=== PATIENT | male | born 1995 | race Hispanic/Latino ===

== ENCOUNTER 2017-06-06 21:12 | Emergency (ER) | payer BC ==
[2017-06-06 21:21] VITALS: BMI 32.1
[2017-06-06 22:39] LABS: BASO # 0.01 K/mm3 (0.0-2.0); BASO % 0.1 % (0.0-3.0); EOS # 0.1 (0.0-0.7); EOS % 0.9 % (1.5-5.0); GRAN % 78.4 % (50.0-68.0); HEMOGLOBIN 15.4 gm/dL (14.0-18.0); LYMPH # 0.9 (1.2-3.4); LYMPH % 10.8 % (22.0-35.0); MEAN CELL VOLUME 88.1 fL (80.0-105.0); MEAN CORPUSCULAR HEMOGLOBIN 31.5 pg (25.0-35.0); MEAN CORPUSCULAR HGB CONC 35.7 g/dl (31.0-37.0); MEAN PLATELET VOLUME 9.5 fl (7.0-11.0); MONO # 0.8 (0.1-0.6); MONO % 9.8 % (1.0-6.0); PLATELET COUNT 149 10^3/uL (120.0-450.0); RBC 4.89 10^6/uL (3.5-6.1); RED CELL DISTRIBUTION WIDTH 13.2 % (11.5-14.5); WHITE BLOOD COUNT 8.4 10^3/ul (4.5-11.0)
[2017-06-06 22:49] LABS: ACETAMINOPHEN < 10.0 ug/ml (10.0-20.0); SALICYLATE < 1 mg/dL (2.0-20.0)
[2017-06-06 22:50] LABS: ALB/GLOB RATIO 1.2 (1.1-1.8); ALBUMIN 4.7 g/dL (3.0-4.8); ALT/SGPT 109 U/L (7-56); AST/SGOT 51 U/L (15-59); BLOOD UREA NITROGEN 17 mg/dL (7-21); CALCIUM 9.3 mg/dL (8.4-10.5); GFR AFRICAN-AMERICAN > 60; GFR NON-AFRICAN AMERICAN > 60
[2017-06-06 23:19] VITALS: BP 124/69; PULSE 89; RESP 24; TEMP 98; O2SAT 98
--- NOTE | 2017-06-06 23:29 | ED PDOC ---
Arrival/HPI - General Chief Complaint: Substance Abuse Time Seen by Provider: 06/06/17 22:05 Historian: Patient, Parent - History of Present Illness Narrative History of Present Illness (Text): 06/06/17 23:15 22yr old male with hx of substance abuse presents today brought in by ambulance after possible overdose. pts mother states that she found the patient on his knees unconscious bending over a drawer. She states she couldnt get him to wake up and called 911. Mom states prior to ems arrival patient woke up screaming at her not to call the ambulance. pt denies any complaints. admits to using heroin today. denies cp or sob. no abdominal pain. no vomiting. Time/Duration: Prior to Arrival Symptom Course: Resolved Past Medical History - Provider Review Nursing Documentation Reviewed: Yes - Travel History Have you recently traveled outside [place] w/in the past 3 mons?: No - Infectious Disease Hx of Infectious Diseases: None - Tetanus Immunization Tetanus Immunization: Unknown - Past Medical History Past Medical History: No Previous - HEENT Other/Comment: chronic ear infections as a child had tubes implanted in both ears - Hematological/Oncological Hx Blood Transfusions: No Hx Blood Transfusion Reaction: No - Musculoskeletal/Rheumatological Hx Falls: No - Psychiatric Hx Anxiety: Yes Hx Substance Use: Yes (smokes pot every other day) Other/Comment: substance abuse - Past Surgical History Past Surgical History: No Previous - Anesthesia Hx Anesthesia Reactions: No Hx Malignant Hyperthermia: No - Suicidal Assessment Feels Threatened In Home Enviroment: No Family/Social History - Physician Review Nursing Documentation Reviewed: Yes Family/Social History: Unknown Family HX Smoking Status: Never Smoked Hx Alcohol Use: No Hx Substance Use: Yes (smokes pot every other day) Substance used: heroine Hx Substance Use Treatment: No Allergies/Home Meds Allergies/Adverse Reactions: Allergies iodine Allergy (Verified 06/06/17 21:21) ANAPHYLAXIS shellfish derived Allergy (Verified 06/06/17 21:21) ANAPHYLAXIS Review of Systems - Review of Systems Constitutional: absent: Fevers Respiratory: absent: SOB, Cough Cardiovascular: absent: Chest Pain, Palpitations Gastrointestinal: absent: Abdominal Pain, Nausea, Vomiting Musculoskeletal: absent: Arthralgias Skin: absent: Rash, Pruritis Neurological: absent: Headache Psychiatric: absent: Anxiety, Depression Physical Exam Vital Signs Reviewed: Yes Vital Signs Temp Pulse Resp BP Pulse Ox 06/06/17 23:15 98 F 89 24 124/69 98 06/06/17 21:12 97 H 18 125/91 H 96 Temperature: Afebrile Blood Pressure: Normal Pulse: Regular Respiratory Rate: Normal Appearance: Positive for: Well-Appearing, Non-Toxic, Comfortable Pain Distress: None Mental Status: Positive for: Alert and Oriented X 3 - Systems Exam Head: Present: Atraumatic Mouth: Present: Moist Mucous Membranes Neck: Present: Normal Range of Motion Respiratory/Chest: Present: Clear to Auscultation, Good Air Exchange. No: Respiratory Distress, Accessory Muscle Use Cardiovascular: Present: Regular Rate and Rhythm, Normal S1, S2. No: Murmurs Abdomen: Present: Normal Bowel Sounds. No: Tenderness, Distention, Peritoneal Signs, Rebound, Guarding Upper Extremity: Present: Normal ROM Lower Extremity: Present: Normal Inspection, Normal ROM Neurological: Present: GCS=15, Speech Normal Skin: Present: Warm, Dry Psychiatric: Present: Alert, Oriented x 3 Medical Decision Making ED Course and Treatment: 06/06/17 23:30 22yr old male presents after heroin use; alert and oriented. no distress. no complaints. cbc wnl cmp; wnl EKG: NSR at 97b/m no st elevations cxr; no infiltrate. no effusion pt vomited after drinking multiple bottles of water trying to give urine sample. ua; no blood uds; + opiate, + cocaine will check ct of abdomen/pelvis per mother patient was found on knees leaning over dresser; abdomen is non tender. ct of abd/pelvis ordered 06/07/17 01:47 pt alert and oriented in no distress; parents at beside; pt denies abdominal pain; pt does not want to wait for CT. states he feels fine. discussed my concern for possible abdominal injury as per mother patient was found on knees with stomach on dresser drawer with both patient and both patients mother and father. pt is alert and oriented. Patient has been advised to not leave the emergency room but has decided to go AGAINST MEDICAL ADVICE. The patient possesses capacity to make decisions and has voiced understanding to all my warnings of potential worsening of the condition for which medical care was sought. I have discussed all known and potential risks and consequences to the patient leaving AGAINST MEDICAL ADVICE. Patient is leaving against medical advise. AMA form signed. witness by SHELDON douglas. pt is going into the care of the parents. I have discussed need for immediate return if symptoms worsen,persist or if new symptoms develop or if pt wishes to continue his care. pt father and mother agree they will return if he develops any concerning symptoms. they also state they are placing the patient into a detox program tomorrow. impression; heroin abuse return if you wish to continue your care return immediately if symptoms worsen, persist or if new symptoms develop. - Lab Interpretations Lab Results: 06/06/17 22:30 06/06/17 22:30 Lab Results 06/07/17 01:00: Urine Opiates Screen Positive H, Urine Methadone Screen Negative , Ur Barbiturates Screen Negative, Ur Phencyclidine Scrn Negative, Ur Amphetamines Screen Negative, U Benzodiazepines Scrn Negative, U Oth Cocaine Metabols Negative, U Cannabinoids Screen Positive H 06/07/17 01:00: Urine Color Yellow, Urine Appearance Clear, Urine pH 6.0, Ur Specific Buckner 1.025, Urine Protein 30 H, Urine Glucose (UA) Negative, Urine Ketones Negative, Urine Blood Negative, Urine Nitrate Negative, Urine Bilirubin Negative, Urine Urobilinogen 0.2, Ur Leukocyte Esterase Negative, Urine RBC Pending, Urine WBC Pending 06/06/17 22:30: WBC 8.4 D, RBC 4.89, Hgb 15.4, Hct 43.1, MCV 88.1, MCH 31.5, MCHC 35.7, RDW 13.2, Plt Count 149, MPV 9.5, Gran % 78.4 H, Lymph % (Auto) 10.8 L, Sullivan % (Auto) 9.8 H, Eos % (Auto) 0.9 L, Baso % (Auto) 0.1, Gran # 6.60 H, Lymph # 0.9 L, Sullivan # 0.8 H, Eos # 0.1, Baso # 0.01 06/06/17 22:30: Alcohol, Quantitative < 10 06/06/17 22:30: Salicylates < 1 L, Acetaminophen < 10.0 L 06/06/17 22:30: Sodium 142, Potassium 3.7, Chloride 102, Carbon Dioxide 28, Anion Gap 16, BUN 17, Creatinine 0.9, Est GFR ( Amer) > 60, Est GFR (Non- Af Amer) > 60, Random Glucose 95, Calcium 9.3, Total Bilirubin 0.7, AST 51, ALT 109 H, Alkaline Phosphatase 98, Total Protein 8.6 H, Albumin 4.7, Globulin 3.9, Albumin/Globulin Ratio 1.2 - RAD Interpretation Radiology Orders: 06/06/17 22:06 CHEST PORTABLE [RAD] Stat 06/07/17 00:32 ABD & PELVIS W/O PO OR IV CONT [CT] Stat - Medication Orders Current Medication Orders: Discontinued Medications Sodium Chloride (Sodium Chloride 0.9%) 1,000 mls @ 999 mls/hr IV .Q1H1M STA Stop: 06/07/17 01:31 Last Admin: 06/07/17 00:45 Dose: Not Given Non-Admin Reason: Patient Refused Disposition/Present on Arrival - Present on Arrival Any Indicators Present on Arrival: No History of DVT/PE: No History of Uncontrolled Diabetes: No Urinary Catheter: No History of Decub. Ulcer: No History Surgical Site Infection Following: None - Disposition Have Diagnosis and Disposition been Completed?: Yes Diagnosis: Heroin abuse Disposition: AGAINST MEDICAL ADVICE Disposition Time: 01:43 Patient Plan: Other (AMA) Condition: FAIR Additional Instructions: return if you wish to continue your care return immediately if symptoms worsen,persist or if new symptoms develop. Referrals: Luanne Zhang MD [Primary Care Provider] - Follow up with primary
[2017-06-07] MEDS ORDERED: Sodium Chloride 0.9% 1,000 ML IV STA (00:31)
[2017-06-07 01:26] LABS: URINE BILIRUBIN NEGATIVE (NEGATIVE); URINE BLOOD NEGATIVE (NEGATIVE); URINE GLUCOSE (UA) NEGATIVE (NEGATIVE); URINE LEUKOCYTE ESTERASE NEGATIVE Leu/uL (NEGATIVE); URINE NITRATE NEGATIVE (NEGATIVE); URINE PROTEIN 30 mg/dL (<30 mg/dL); URINE UROBILINOGEN 0.2 E.U./dL (<1 E.U./dL)
[2017-06-07 01:28] LABS: BARBITURATES, UR NEGATIVE (NEGATIVE); BENZODIAZEPINES, UR NEGATIVE (NEGATIVE); OPIATES, UR POSITIVE (NEGATIVE); PHENCYCLIDINE, UR NEGATIVE (NEGATIVE)
[2017-06-07 01:39] LABS: URINE APPEARANCE CLEAR (CLEAR); URINE COLOR YELLOW (YELLOW)
[2017-06-07 01:43] LABS: URINE BACTERIA RARE (NEG); URINE RBC 0 - 2 /hpf (0-2)
[2017-06-07 01:44] LABS: URINE EPITHELIAL CELLS 0 - 2 /hpf (0-5)
--- NOTE | 2017-06-07 07:50 | RAD ---
HISTORY: overdose COMPARISON: No prior. FINDINGS: LUNGS: The lungs are clear. PLEURA: No significant pleural effusion identified, no pneumothorax apparent. CARDIOVASCULAR: Normal. OSSEOUS STRUCTURES: No significant abnormalities. VISUALIZED UPPER ABDOMEN: Normal. OTHER FINDINGS: None. IMPRESSION: No active pulmonary disease.
--- NOTE | 2017-06-07 16:48 | CARD ---
APPROVED REPORT EKG Measurement Heart [id number] <Conclusion> Normal sinus rhythm Normal ECG
== END 2017-06-07 01:40 | disposition left against medical advice (07) ==
LOC: ED 21:12
DX: F11.10 Opioid abuse, uncomplicated (principal)
CPT/HCPCS: 71010; 80053; 81001; 85025; 93005; 99284; G0480

== ENCOUNTER 2019-01-27 22:08 | Observation (INO) | payer BC ==
--- NOTE | 2019-01-27 22:49 | ED PDOC ---
Arrival/HPI - General Chief Complaint: Lower Extremity Problem/Injury Time Seen by Provider: 01/27/19 22:33 Historian: Patient - History of Present Illness Narrative History of Present Illness (Text): 01/27/19 22:49 24 year old male, with past medical history of substance abuse, presents to emergency department brought in by EMS via stretcher s/p fall prior to arrival. Patient states he fell down stairs and injured his left ankle. Patient denies loss of consciousness, head trauma, headache, dizziness, any other joint pain/injury, or any other somatic complaints. Time/Duration: Prior to Arrival Symptom Onset: Gradual Symptom Course: Unchanged Activities at Onset: Light Context: Home Past Medical History - Provider Review Nursing Documentation Reviewed: Yes - Infectious Disease Hx of Infectious Diseases: None - Tetanus Immunization Tetanus Immunization: Unknown - Past Medical History Past Medical History: No Previous - HEENT Other/Comment: chronic ear infections as a child had tubes implanted in both ears - Hematological/Oncological Hx Blood Transfusions: No Hx Blood Transfusion Reaction: No - Musculoskeletal/Rheumatological Hx Falls: Yes - Psychiatric Hx Anxiety: Yes Hx Substance Use: Yes (smokes pot every other day) Other/Comment: substance abuse - Past Surgical History Past Surgical History: No Previous - Anesthesia Hx Anesthesia Reactions: No Hx Malignant Hyperthermia: No - Suicidal Assessment Feels Threatened In Home Enviroment: No Family/Social History - Physician Review Nursing Documentation Reviewed: Yes Family/Social History: Unknown Family HX Smoking Status: Never Smoked Hx Alcohol Use: No Hx Substance Use: Yes (smokes pot every other day) Substance used: heroine Hx Substance Use Treatment: No Allergies/Home Meds Allergies/Adverse Reactions: Allergies iodine Allergy (Verified 06/06/17 21:21) ANAPHYLAXIS shellfish derived Allergy (Verified 06/06/17 21:21) ANAPHYLAXIS Review of Systems - Physician Review All systems were reviewed & negative as marked: Yes - Review of Systems Constitutional: absent: Fevers Respiratory: absent: SOB, Cough Cardiovascular: absent: Chest Pain Gastrointestinal: absent: Abdominal Pain, Diarrhea, Nausea, Vomiting Genitourinary Male: absent: Urinary Output Changes Musculoskeletal: Myalgias (left ankle injury), Other. absent: Back Pain, Neck Pain Skin: absent: Rash Neurological: Other (no loss of consciousness or head trauma ). absent: Headache, Dizziness Physical Exam Vital Signs Reviewed: Yes Vital Signs Temp Pulse Resp BP Pulse Ox 01/27/19 22:22 98.2 F 85 18 118/57 L 100 Temperature: Afebrile Blood Pressure: Normal Pulse: Regular Respiratory Rate: Normal Appearance: Positive for: Well-Appearing, Non-Toxic, Comfortable Pain Distress: Moderate Mental Status: Positive for: Alert and Oriented X 3 - Systems Exam Head: Present: Atraumatic, Normocephalic Mouth: Present: Moist Mucous Membranes Neck: Present: Normal Range of Motion Respiratory/Chest: Present: Clear to Auscultation, Good Air Exchange. No: Respiratory Distress Cardiovascular: Present: Regular Rate and Rhythm, Normal S1, S2. No: Murmurs Abdomen: Present: Normal Bowel Sounds. No: Tenderness, Distention Upper Extremity: Present: Normal Inspection, Normal ROM. No: Cyanosis, Edema Lower Extremity: Present: NORMAL PULSES, Tenderness (left ankle ), Swelling (left ankle ), Deformity (left ankle ), Neurovascularly Intact, Capillary Refill < 2 s. No: Temperature Abnormalties Neurological: Present: GCS=15, CN II-XII Intact, Speech Normal, Normal Sensory Function Skin: Present: Warm, Dry, Normal Color. No: Rashes Psychiatric: Present: Alert, Oriented x 3, Normal Insight, Normal Concentration Medical Decision Making ED Course and Treatment: 01/28/19 00:04 Impression: 24 year old male presents to emergency department complaining of injury to left ankle s/p fall prior to arrival. Plan: -- X-ray left foot -- X-ray left ankle -- Reassess and disposition Prior Visits: Notes and results from previous visits were reviewed. Progress Notes: XR L foot / ankle : +posterior-lateral dislocation of the ankle at the mortise, +fracture of the distal fibula. Case d/w Dr. Omari Galeas, podiatry resident, who reviewed the XRs and recommends reduction with conscious sedation. Patient will be admitted with possible OR in the AM with Dr. Melgar, as per podiatry resident. Patient feels comfortable with plan and for admission. Labs reviewed and wnl. Case d/w Dr. Morrell, agrees with plan to admit under her service. - RAD Interpretation Radiology Orders: 01/27/19 22:43 ANKLE LEFT 3 VIEWS ROUTINE [RAD] Stat FOOT LEFT 3 VIEWS ROUTINE [RAD] Stat - Medication Orders Current Medication Orders: Discontinued Medications Ketorolac Tromethamine (Toradol) 60 mg IM STAT STA Stop: 01/27/19 22:44 ED Procedural Sedation - Pre Anesthesia Assessment Chief Complaint: Lower Extremity Problem/Injury Last Known Meal: 2300, patient ate a [employer] hamburger in the ER, despite being told that he was NPO. Past Medical History: Medications Reviewed, Allergies Reviewed, Record Review Previous Surgies: Reviewed (+previous surgery to the R ankle ) Family History/Social History: Reviewed - Physical Exam/Review of Systems Vital Signs Reviewed: Yes Cardiovascular: Regular Rate and Rhythm, Normal S1, S2. denies: Murmurs Respiratory/Chest: Clear to Auscultation, Good Air Exchange. denies: Respiratory Distress Neurological: GCS=15, CN II-XII Intact, Speech Normal Abdomen: Normal Bowel Sounds. denies: Tenderness, Distention Mental Status: Alert and Oriented X 3 - Pre-Procedure Airway Assessment History of difficult intubation or surgical airway (i.e trach):: No Inability to extend neck:: No Mouth opening less than two finger breadth:: No Diagnosis of sleep apnea:: No Less than three finger breadth to hyoid bone:: No ASA Criteria: 1 - Healthy, normal. 2 - Mild systemic disease (No functional limitations, mildline obesity, DM withot complications, Hypertention). 3 - Severe systemic disease (Some functional limitation, stable angina, morbid obesity, controlled COPD/Asthma/CHF). 4 - Sever systemic disease constant threat to life (Unstable angina, active symptoms of COPD/Asthma, CHF/Hypertension. 5 - Moribund ASA Clarification: ASA I Mallampati (airway): Class I - Intra-Procedure (Medications) Medications Given: Discontinued Medications Etomidate (Amidate) 20 mg IVP STAT STA Stop: 01/28/19 00:33 Ketorolac Tromethamine (Toradol) 60 mg IM STAT STA Stop: 01/27/19 22:44 Last Admin: 01/27/19 23:02 Dose: 60 mg MAR Pain Assessment Document 01/27/19 23:02 RD (Rec: 01/27/19 23:02 [id number] Pain Reassessment Is this a pain reassessment? No Sleep Is patient sleeping during reassessment? No Presence of Pain Presence of Pain Yes IM Administration Charges Document 01/27/19 23:02 RD (Rec: 01/27/19 23:02 RD [id number]) Injection Site MAR Injection Site Left Deltoid Charges for Administration # of IM Administrations 1 Etomidate (Amidate) 20 mg IVP STAT Physician Pushed Medication: No - Post-Procedure Post Procedure Note: L ankle fracture dislocation was reduced by podiatry resident Dr. Omari Galeas and ER ROOPA Bae. Orthoglass posterior short leg and sugar tong splint applied by ER PA and podiatry resident. Neuromuscular intact post splint and post procedure. Patient tolerated the procedure well. He is AAOx3, speaking in full sentences, VSS. He reports no nausea, chest pain, SOB or abdominal pain. - PA / SENIOR STRUCTURAL ENGINEER / Resident Statement MD/DO has reviewed & agrees with the documentation as recorded. - Scribe Statement The provider has reviewed the documentation as recorded by the Scribe Tashi Castaneda All medical record entries made by the Scribe were at my direction and personally dictated by me. I have reviewed the chart and agree that the record accurately reflects my personal performance of the history, physical exam, medical decision making, and the department course for this patient. I have also personally directed, reviewed, and agree with the discharge instructions and disposition. Disposition/Present on Arrival - Present on Arrival Any Indicators Present on Arrival: No History of DVT/PE: No History of Uncontrolled Diabetes: No Urinary Catheter: No History of Decub. Ulcer: No History Surgical Site Infection Following: None - Disposition Have Diagnosis and Disposition been Completed?: Yes Diagnosis: Dislocation of ankle, left, closed, Closed fracture of left distal fibula Disposition: HOSPITALIZED Disposition Time: 02:00 Patient Plan: Admission Patient Problems: Current Active Problems Problem Status Onset Dislocation of ankle, left, closed Acute Closed fracture of left distal fibula Acute Condition: STABLE Forms: Active Circle (Syrian)
[2019-01-28] MEDS ORDERED: Etomidate 20 mg/10ml Inj IVP STA (00:32)
[2019-01-28] MEDS ORDERED: Etomidate 20 mg/10ml Inj IV ONE (00:43)
[2019-01-28 00:48] LABS: BASO # 0.01 K/mm3 (0.0-2.0); BASO % 0.1 % (0.0-3.0); EOS # 0.1 (0.0-0.7); EOS % 0.9 % (1.5-5.0); HEMOGLOBIN 14.6 g/dL (14.0-18.0); LYMPH # 1.5 (1.2-3.4); LYMPH % 20.2 % (22.0-35.0); MEAN CELL VOLUME 88.2 fl (80.0-105.0); MEAN CORPUSCULAR HEMOGLOBIN 30.7 pg (25.0-35.0); MEAN CORPUSCULAR HGB CONC 34.8 g/dl (31.0-37.0); MEAN PLATELET VOLUME 9.6 fl (7.0-11.0); MONO # 0.6 (0.1-0.6); MONO % 8.3 % (1.0-6.0); RBC 4.75 10^6/uL (3.5-6.1); WHITE BLOOD COUNT 7.5 10^3/uL (4.5-11.0)
[2019-01-28 00:56] LABS: INR 1.11; PARTIAL THROMBOPLASTIN TIME 30.9 Seconds (26.9-38.3); PROTHROMBIN TIME 12.3 SECONDS (9.4-12.5)
[2019-01-28 00:59] LABS: ALB/GLOB RATIO 1.1 (1.1-1.8); ALBUMIN 4.3 g/dL (3.0-4.8); ALT/SGPT 23 U/L (7-56); AST/SGOT 34 U/L (17-59); BLOOD UREA NITROGEN 17 mg/dL (7-21); GFR NON-AFRICAN AMERICAN > 60
--- NOTE | 2019-01-28 01:25 | CP.PCM.CON ---
History of Present Illness - History of Present Illness History of Present Illness: Ortho Consult Note - Dr. Melgar 24 year old male patient PMHx substance abuse seen and evaluated in ED for left ankle pain s/p mechanical fall. Patient states approximately 2 hours prior to arrival he fell down stairs and injured his left ankle. Patient reports 9/10 pain in ankle joint with associated deformity. Patient denies any head trauma. No LOC. Denies n/v/f/d/c/sob/mitchell/cp. Review of Systems - Review of Systems All systems: reviewed and no additional remarkable complaints except (as per HPI) Past Patient History - Infectious Disease Hx of Infectious Diseases: None - Tetanus Immunizations Tetanus Immunization: Unknown - Past Social History Smoking Status: Never Smoked - HEENT Other/Comment: chronic ear infections as a child had tubes implanted in both ears - HEMATOLOGICAL/ONCOLOGICAL Hx Blood Transfusions: No Hx Blood Transfusion Reaction: No - MUSCULOSKELETAL/RHEUMATOLOGICAL Hx Falls: Yes - PSYCHIATRIC Hx Anxiety: Yes Hx Substance Use: Yes (smokes pot every other day) Other/Comment: substance abuse - SURGICAL HISTORY Hx Surgeries: Yes (MYRINGOTOMY WITH TUBES CHILD) - ANESTHESIA Hx Anesthesia Reactions: No Hx Malignant Hyperthermia: No Meds Allergies/Adverse Reactions: Allergies Allergy/AdvReac Type Severity Reaction Status Date / Time iodine Allergy ANAPHYLAXIS Verified 06/06/17 21:21 shellfish derived Allergy ANAPHYLAXIS Verified 06/06/17 21:21 Physical Exam - Constitutional Appears: Non-toxic, No Acute Distress - Extremities Exam Additional comments: LLE focused: VASC: DP and PT pulses palpable 2/4. CFT <3 seconds to all digits. Nonpitting edema noted to ankle. Temperature gradient cool to cool. NEURO: Light touch and protective sensation intact. No paresthesias present. DERM: No open lesions noted. Skin well hydrated. ORTHO: Foot dislocated plantarlateral to leg. Pain on palpation and pain upon ROM ankle joint. - Neurological Exam Neurological exam: Alert, Oriented x3 - Psychiatric Exam Psychiatric exam: Normal Affect, Normal Mood Results - Vital Signs Recent Vital Signs: Last Vital Signs Temp 98.2 F 01/27/19 22:22 Pulse 85 01/27/19 22:22 Resp 18 01/27/19 22:22 BP 118/57 L 01/27/19 22:22 Pulse Ox 100 01/27/19 22:22 - Labs Result Diagrams: 01/28/19 00:37 01/28/19 00:37 Labs: Laboratory Results - last 24 hr 01/28/19 01/28/19 01/28/19 00:37 00:37 00:37 WBC 7.5 RBC 4.75 Hgb 14.6 Hct 41.9 L MCV 88.2 MCH 30.7 MCHC 34.8 RDW 13.0 Plt Count 166 MPV 9.6 Neut % (Auto) 70.5 H Lymph % (Auto) 20.2 L Hubbard % (Auto) 8.3 H Eos % (Auto) 0.9 L Baso % (Auto) 0.1 Lymph # (Auto) 1.5 Hubbard # (Auto) 0.6 Eos # (Auto) 0.1 Baso # (Auto) 0.01 Absolute Neuts (auto) 5.25 PT 12.3 INR 1.11 APTT 30.9 Sodium 138 Potassium 4.0 Chloride 105 Carbon Dioxide 24 Anion Gap 14 BUN 17 Creatinine 0.9 Est GFR ( Amer) > 60 Est GFR (Non-Af Amer) > 60 Random Glucose 117 H Calcium 9.0 Magnesium 1.9 Total Bilirubin 0.4 AST 34 ALT 23 Alkaline Phosphatase 71 Total Protein 8.1 Albumin 4.3 Globulin 3.8 Albumin/Globulin Ratio 1.1 Assessment & Plan - Assessment and Plan (Free Text) Assessment: 24M PMHx substance abuse with left ankle dislocation, left fibular fracture Plan: Patient seen and evaluated Discussed with attending, Dr. Melgar Left ankle XR reveal closed fibular fracture and ankle joint dislocation Consent signed and ankle joint closed reduction performed. Etomidate given by ED as patient ate food less than a hour prior to procedure. LLE placed in AO splint Post-reduction films obtained which reveal talar dome back under tibial plafond however increased medial clear space remains Discussed with patient he will need surgical intervention due to instability of injury pattern. Discussed with patient risks, benefits, complications, and alternatives to procedure- patient wishes to think overnight if he wants to proceed with surgery NPO order placed Patient to be admitted under observation Will continue to follow
[2019-01-28] MEDS ORDERED: HYDROmorphone 0.5 mg/0.5 ml ISec IVP STA (02:46)
[2019-01-28] MEDS ORDERED: HYDROmorphone 0.5 mg/0.5 ml ISec IVP ONE (03:49)
[2019-01-28 04:52] VITALS: BMI 34.4
[2019-01-28 04:54] VITALS: RESP 18
[2019-01-28] MEDS ORDERED: HYDROmorphone 0.5 mg/0.5 ml ISec IVP PRN (06:37)
[2019-01-28 08:39] VITALS: BP 124/74; PULSE 70; TEMP 98; O2SAT 96
--- NOTE | 2019-01-28 10:25 | CP.PCM.PN ---
Subjective - Date & Time of Evaluation Date of Evaluation: 01/28/19 Time of Evaluation: 10:20 - Subjective Subjective: Resident house doc: Paged by nurse to try to talk to patient into staying for orthopedic evaluation. Patient and patient's girlfriend were exhibiting with erratic behavior, and cursing. Refused to wait for orthopedic evaluation, wants to go outside and smoke, and follow up with his private orthopedic. Patient refused to sign AMA form, and stormed out of the room. Will make Dr. Milton galvin. Objective - Vital Signs/Intake and Output Vital Signs (last 24 hours): Temp Pulse Resp BP Pulse Ox 98 F 70 18 124/74 96 01/28/19 06:00 01/28/19 06:00 01/28/19 06:00 01/28/19 06:00 01/28/19 06:00 - Medications Medications: Current Medications Hydromorphone HCl (Dilaudid) 0.5 mg IVP Q4H PRN PRN Reason: left ankle pain Last Admin: 01/28/19 08:29 Dose: 0.5 mg Pantoprazole Sodium (Protonix Inj) 40 mg IVP DAILY COUNT INCLUDES THE [facility] Last Admin: 01/28/19 09:47 Dose: Not Given - Labs Labs: 01/28/19 00:37 01/28/19 00:37 PT 12.3 SECONDS (9.4-12.5) 01/28/19 00:37 INR 1.11 01/28/19 00:37 APTT 30.9 Seconds (26.9-38.3) 01/28/19 00:37
--- NOTE | 2019-01-28 10:30 | RAD ---
Date of service: 01/27/2019 PROCEDURE: Left Foot Radiographs. HISTORY: Posttraumatic pain COMPARISON: January 27, 2019. Left ankle reported separately FINDINGS: BONES: Incompletely visualized fracture dislocation left ankle. No visible foot abnormalities/fractures. JOINTS: Left ankle dislocation incompletely visualize, better seen on ankle radiographs. SOFT TISSUES: Soft tissue swelling attests to the acuity of the fracture. OTHER FINDINGS: None. IMPRESSION: Incomplete visualization of known fracture dislocation left ankle. Otherwise no acute osseous or significant abnormalities detected.
--- NOTE | 2019-01-28 10:33 | RAD ---
Date of service: 01/27/2019 PROCEDURE: Left Ankle Radiographs. HISTORY: Pain. No history of recent/ related trauma provided. COMPARISON: Concurrent left foot reported separately FINDINGS: BONES: Oblique fracture of the distal fibula above the ankle mortise. Possible chip fracture anterior aspect of the dislocated tibia. JOINTS: Dislocation of the tibia relative to the talus. It subluxation of the fibular relative to the talus. Widening of the interosseous ligament noted. SOFT TISSUES: Soft tissue swelling attests to the acuity of the fracture. OTHER FINDINGS: None. IMPRESSION: Fracture dislocation left ankle as described.
--- NOTE | 2019-01-28 10:34 | RAD ---
Date of service: 01/28/2019 PROCEDURE: Left Ankle Radiographs. HISTORY: post reduction COMPARISON: None available. FINDINGS: BONES: Redemonstration of distal fibular fracture. JOINTS: Subluxation/pseudosubluxation replaces previously identified dislocation. SOFT TISSUES: Soft tissue swelling remains, partially obscured by fiberglass cast. OTHER FINDINGS: None. IMPRESSION: Near anatomic alignment of previously identified fracture dislocation. A component of subluxation/pseudosubluxation remains in particular at the level of the talar tibial joint.
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
== END 2019-01-28 10:28 | disposition left against medical advice (07) ==
LOC: ED 22:08 → INTOOBSV 01-28 02:13 → ERH 01-28 02:13 → 5RSO 01-28 03:59
PROVIDERS: ADMIT Internal Medicine; ATTEND Internal Medicine
DX: S82.832A Other fracture of upper and lower end of left fibula, initial encounter for closed fracture (principal); W10.9XXA Fall (on) (from) unspecified stairs and steps, initial encounter; Y92.9 Unspecified place or not applicable
CPT/HCPCS: 27788; 73610; 73630; 80053; 83735; 85025; 85610; 85730; 96372; 96374; 99284; G0378; J1170; J1885